=== PATIENT | female | born 1950 | race Hispanic/Latino ===

== ENCOUNTER 2016-09-05 11:05 | Outpatient (CLI) | payer MEDICARE, OTHER ==
--- NOTE | 2016-09-07 09:00 | Mammography Report ---
DIAGNOSTIC LEFT MAMMOGRAM: HISTORY: The patient had a recent chest CT at [facility] in which a "possible mass" was reported in the left breast. This study is not currently available for review. Comparison is made to our previous study performed on March 15, 2016. FINDINGS: The breasts are fatty replaced with no evidence of mass or architectural distortion. No suspicious calcifications are seen. The axillary region is normal. IMPRESSION: Normal left mammogram. BI-RADS CATEGORY: 1 = Negative ACR BI-RADS MAMMOGRAPHIC CODES: 0 = Needs additional imaging evaluation; 1 = Negative; 2 = Benign; 3 = Probably benign; 4 = Suspicious; 5 = Malignant; 6 = Known biopsy-proven malignancy COMMENT: 1. Dense breast tissue, i.e., adenosis, fibrocystic changes, etc., may obscure an underlying neoplasm. 2. Approximately 10% of cancers are not detected with mammography. 3. A negative mammography report should not delay biopsy if a clinically suspicious mass is present. RECOMMENDATION: Routine screening schedule 12 months from the previous study.
== END 2016-09-05 11:06 | disposition home or self-care (01) ==
LOC: SPVWC 11:05
PROVIDERS: ATTEND Internal Medicine Rheumatology
DX: R92.8 Other abnormal and inconclusive findings on diagnostic imaging of breast (principal)
CPT/HCPCS: G0206-LT

== ENCOUNTER 2017-09-06 11:06 | Outpatient (CLI) | payer MEDICARE, OTHER ==
--- NOTE | 2017-09-07 14:15 | Mammography Report ---
BILATERAL DIGITAL SCREENING MAMMOGRAM with CAD: 09/06/17 11:06:00 CLINICAL: Routine screening. COMPARISON:03/15/16 FINDINGS: The breasts are almost entirely fatty. No mass, architectural distortion or suspicious calcifications. IMPRESSION: No mammographic evidence of malignancy. BI-RADS CATEGORY: 1 - - Negative RECOMMENDATION: Routine mammographic screening in one year. COMMENT: Patient follow-up letters are generated by our [employer] application.
== END 2017-09-06 11:07 | disposition home or self-care (01) ==
LOC: SPVWC 11:06
PROVIDERS: ATTEND Internal Medicine Rheumatology
DX: Z12.31 Encounter for screening mammogram for malignant neoplasm of breast (principal)
CPT/HCPCS: 77067